=== PATIENT | female | born 1985 | race Caucasian/White ===

== ENCOUNTER 2017-04-07 05:41 | Day surgery (SDC) | payer OTHER ==
[~2017-04-07] VITALS: Ht 157.5 cm; Wt 58.8 kg
[2017-04-07] MEDS ORDERED: ZANTAC (06:48)
[2017-04-07] MEDS ORDERED: LEVOTHYROXINE (06:48)
--- NOTE | 2017-04-07 07:42 | OPPN ---
Date/Time of Note Date/Time of Note DATE: 04/07/17 TIME: 07:41 Operative Report Preoperative Diagnosis Abdominal pain Postoperative Diagnosis Small hiatal hernia and gastroesophageal reflux disease Gastritis Operation/Procedure Performed Esophagogastroduodenoscopy and biopsy Surgeon see signature line visitor use assistant None Anesthesia: moderate sedation Estimated blood loss: none Transfusion Required none Specimen Gastric mucosal biopsy Grafts/Implants none Complications none CRISTY SALINAS MD Apr 07, 2017 07:42
[2017-04-07] MEDS ORDERED: MIDAZOLAM 1 MG/ML 2 ML INJ ONE (07:46)
[2017-04-07] MEDS ORDERED: FENTAnyl 50 MCG/ML VIAL ONE (07:46)
[2017-04-07] MEDS ORDERED: ONDANSETRON 4 MG INJ ONE (08:14)
--- NOTE | 2017-04-07 08:24 | GILP ---
DATE OF PROCEDURE: NAME OF PROCEDURES: Esophagogastroduodenoscopy and biopsy. SURGEON: Cristy Maldonado MD PREOPERATIVE DIAGNOSIS: Abdominal pain. POSTOPERATIVE DIAGNOSES: 1. Small hiatal hernia and gastroesophageal reflux disease. 2. Gastritis with erosions. 3. Gastric mucosal biopsies were taken for Helicobacter pylori test. INDICATION FOR THE PROCEDURE: Ms. Dayanna Reyes is a 32-year-old female patient who had upper abdom inal pain, not responding to therapy. The patient was scheduled for endoscopic examination for furt her evaluation. The procedure and possible complications were well explained to the patient. The patient understood and consented to the procedure. DESCRIPTION OF PROCEDURE: Under the influence of fentanyl and Versed, the gastroscope was carefully introduced into the esophagus and under direct vision it was advanced to the stomach and through th e pylorus into the duodenal bulb and descending duodenum. FINDINGS: ESOPHAGUS: The patient had a hiatal hernia and gastroesophageal reflux disease. STOMACH: She had gastritis. Gastric mucosal biopsies were taken for H. pylori test. Duodenum was normal. She tolerated the procedure very well and there was no complication from the procedure. At the end of the procedures, she was awake with stable vital signs and she was discharged home to the care of her family. IMPRESSION: Please see postoperative diagnosis. PLAN: 1. Omeprazole 40 mg p.o. q.a.m. 2. Await Helicobacter pylori test report. Dictated By: CRISTY LANGFORD/BILL Conf#: [id number] DID#: [id number]
== END 2017-04-07 11:58 | disposition home or self-care (01) ==
LOC: GIL 05:41
PROVIDERS: ATTEND Internal Medicine Gastroenterology
DX: K44.9 Diaphragmatic hernia without obstruction or gangrene (principal); K29.60 Other gastritis without bleeding
CPT/HCPCS: 43239; 84703; J2250; J2405; J3010; Z7610; 87081